=== PATIENT | male | born 1980 ===

== ENCOUNTER 2017-05-10 07:34 | Emergency (ER) | payer SELFPAY ==
[2017-05-10 07:43] VITALS: RESP 20
--- NOTE | 2017-05-10 08:07 | C.PDOC ---
History Of Present Illness Patient presents to the ER stating for the past 4 nights he has been experiencing trouble sleeping. Patient states he is normally able to sleep 7-8 hours a night but lately he has only been able to sleep about 2 hours, and feels tired. States he has tried OTC Nyquill and Zquill with no relief. Patient admits to being stressed and having family issues. Patient states last 2 nights he started feeling like his body was very hot, states " internal heat, starts from my neck and goes down my body and tingling sensation to the fingertips and toes". Patient also reports of a bump to the left armpit and is unsure of the cause. Patient states he has not been to see his PMD in over a year but remembers he was told he was pre-diabetic and has high cholesterol, but never took any medications. Patient denies fever, chills, chest pain, SOB, nausea, vomiting, abdominal pain, diarrhea, dysuria. Time Seen by Provider: 05/10/17 07:54 Chief Complaint (Nursing): Anxiety History Per: Patient History/Exam Limitations: no limitations Onset/Duration Of Symptoms: Days (4 nights) Current Symptoms Are (Timing): Still Present Past Medical History Reviewed: Historical Data, Nursing Documentation, Vital Signs Vital Signs: Last Vital Signs Temp 97.9 F 05/10/17 07:42 Pulse 72 05/10/17 07:42 Resp 20 05/10/17 07:42 BP 165/102 H 05/10/17 07:42 Pulse Ox 100 05/10/17 09:16 - Medical History PMH: No Chronic Diseases Other Surgeries: left corneal transplant Family History: States: No Known Family Hx - Social History Hx Alcohol Use: No Hx Substance Use: No - Immunization History Hx Tetanus Toxoid Vaccination: No Hx Influenza Vaccination: No Hx Pneumococcal Vaccination: No Review Of Systems Constitutional: Positive for: Other ((+) unable to sleep). Negative for: Fever , Chills Eyes: Negative for: Vision Change Cardiovascular: Positive for: Palpitations. Negative for: Chest Pain Respiratory: Negative for: Shortness of Breath Gastrointestinal: Negative for: Nausea, Vomiting, Abdominal Pain, Diarrhea Genitourinary: Negative for: Dysuria Musculoskeletal: Negative for: Neck Pain Skin: Positive for: Other ((+) bump in left armpit) Neurological: Negative for: Weakness, Numbness, Headache Psych: Positive for: Anxiety. Negative for: Suicidal ideation Physical Exam - Physical Exam Appears: Non-toxic, Other (anxious) Skin: Warm, Dry, No Rash, Other (pustule to left axilla) Head: Atraumatic, Normacephalic Eye(s): right: Normal Inspection, PERRL, EOMI, left: Other (blind) Nose: Normal Oral Mucosa: Moist Lips: Normal Appearing Neck: Normal ROM Lymphatic: Normal Exam, No Adenopathy Chest: Symmetrical, No Tenderness Cardiovascular: Rhythm Regular, No Murmur Respiratory: Normal Breath Sounds, No Rales, No Rhonchi, No Stridor, No Wheezing Gastrointestinal/Abdominal: Normal Exam, Soft, No Tenderness, No Guarding, No Rebound Extremity: Normal ROM, No Tenderness, No Pedal Edema, Capillary Refill (<2 secs) , No Deformity, No Swelling Pulses: Left Radial: Normal Neurological/Psych: Oriented x3, Normal Speech, Normal Motor, Normal Sensation Gait: Steady ED Course And Treatment - Laboratory Results Result Diagrams: 05/10/17 08:28 05/10/17 08:28 Lab Interpretation: Normal ECG: Interpreted By Me, Viewed By Me ECG Rhythm: Sinus Rhythm ECG Interpretation: No Acute Changes Rate From EC (BPM) O2 Sat by Pulse Oximetry: 100 (RA) Pulse Ox Interpretation: Normal - Radiology CXR: Interpreted by Me, Viewed By Me CXR Interpretation: Yes: No Acute Disease Medical Decision Making Medical Decision Making: IMPRESSION: inability to sleep, stressed about health, anxiety Prior records reviewed: patient last seen 02/17/16 for urethritis and treated. PLAN: * EKG * Labs * CXR PROGRESS: CXR show no active disease Labs show high cholesterol, otherwise normal glucose, electrolytes and no anemia or leukocytosis Patient re-evaluated and is resting comfortably in no distress. I explained all lab results and provide copy of results to patient. I advised dietary changes to help with cholesterol. Recommend rest and try benadryl to help with sleep. Can follow up outpatient in the clinic and with mental health resources if needed. Patient is stable for discharge. Disposition Counseled Patient/Family Regarding: Studies Performed, Diagnosis, Need For Followup - Disposition Referrals: [facility] [Outside] [facility] [Outside] [facility] [Outside] Disposition: HOME/ ROUTINE Disposition Time: 09:16 Condition: STABLE Instructions: Insomnia (ED), Anxiety (ED) Forms: [a]list games (Pashto) Print Language: BURUNDIAN - POA Present On Arrival: None - Clinical Impression Clinical Impression: Anxiety about health, Stress at home, Insomnia due to stress - PA / ENGINEERING TEACHER / Resident Statement MD/DO has reviewed & agrees with the documentation as recorded. - Scribe Statement The provider has reviewed the documentation as recorded by the Scribe Brigette Fortune All medical record entries made by the Benjiibleatha were at my direction and personally dictated by me. I have reviewed the chart and agree that the record accurately reflects my personal performance of the history, physical exam, medical decision making, and the department course for this patient. I have also personally directed, reviewed, and agree with the discharge instructions and disposition.
[2017-05-10 08:38] LABS: BASO % 0.4 % (0.0-2.0); EOS # 0.1 K/uL (0.0-0.7); EOS % 1.5 % (0.0-4.0); HEMOGLOBIN 14.6 g/dL (12.0-18.0); LYMPH # 2.8 K/uL (1.0-4.3); LYMPH % 33.4 % (20.0-40.0); MEAN CELL VOLUME 91.1 fL (80.0-94.0); MEAN CORPUSCULAR HEMOGLOBIN 31.5 pg (27.0-31.0); MEAN CORPUSCULAR HGB CONC 34.6 g/dL (33.0-37.0); MONO # 0.6 K/uL (0.0-0.8); NEUT # 4.8 K/uL (1.8-7.0); NEUT % 57.7 % (50.0-75.0); NRBC % 0.1 % (0.0-2.0); RBC 4.63 Mil/uL (4.40-5.90); WHITE BLOOD COUNT 8.4 K/uL (4.8-10.8)
[2017-05-10 08:49] LABS: BARBITURATES, UR NEGATIVE (NEGATIVE); BENZODIAZEPINES, UR NEGATIVE (NEGATIVE); OPIATES, UR NEGATIVE (NEGATIVE); PHENCYCLIDINE, UR NEGATIVE (NEGATIVE); URINE BILIRUBIN NEGATIVE (NEGATIVE); URINE BLOOD 1+ (NEGATIVE); URINE CLARITY Clear (Clear); URINE COLOR Yellow (YELLOW); URINE GLUCOSE (UA) NORMAL (Normal); URINE LEUKOCYTE ESTERASE NEG Leu/uL (Negative); URINE NITRATE NEGATIVE (NEGATIVE); URINE PROTEIN NEGATIVE (NEGATIVE); URINE UROBILINOGEN NORMAL mg/dL (0.2-1.0)
[2017-05-10 08:52] LABS: ALB/GLOB RATIO 1.4 (1.0-2.1); ALBUMIN 4.3 g/dL (3.5-5.0); ALT/SGPT 28 U/L (21-72); AST/SGOT 31 U/L (17-59); BLOOD UREA NITROGEN 13 mg/dL (9-20); GFR AFRICAN-AMERICAN > 60; GFR NON-AFRICAN AMERICAN > 60; HDL CHOLESTEROL 49 mg/dL (30-70)
--- NOTE | 2017-05-10 08:58 | RAD ---
HISTORY: SOB COMPARISON: No prior. TECHNIQUE: Chest PA and lateral FINDINGS: LUNGS: No active pulmonary disease. PLEURA: No significant pleural effusion identified. No pneumothorax apparent. CARDIOVASCULAR: Normal. OSSEOUS STRUCTURES: No significant abnormalities. VISUALIZED UPPER ABDOMEN: Normal. OTHER FINDINGS: None. IMPRESSION: No active disease.
[2017-05-10 09:03] LABS: LDL CHOLESTEROL 239 mg/dL (0-129)
[2017-05-10 09:34] VITALS: BP 97/55; PULSE 65; TEMP 98.1; O2SAT 99
--- NOTE | 2017-05-11 21:59 | CARD ---
APPROVED REPORT EKG Measurement Heart [id number] <Conclusion> Normal sinus rhythm Moderate voltage criteria for LVH, may be normal variant Early repolarization. Borderline ECG
== END 2017-05-10 09:34 | disposition home or self-care (01) ==
LOC: C.ER 07:34
DX: F41.9 Anxiety disorder, unspecified (principal); F43.9 Reaction to severe stress, unspecified; G47.00 Insomnia, unspecified; E78.00 Pure hypercholesterolemia, unspecified; R73.03 Prediabetes
CPT/HCPCS: 71046; 80053; 80061; 81001; 84439; 84443; 85025; 93005; 99284; G0480